=== PATIENT | male | born 1970 | race Caucasian/White ===

== ENCOUNTER 2023-05-17 11:14 | Day surgery (SDC) | payer BC ==
[~2023-05-17 11:14] MED LIST: Lactated Ringers 1,000 ML IV SCH; propofoL 50 ML ONE
[2023-05-17 13:30] VITALS: BP 128/79; PULSE 82
== END 2023-05-17 13:10 | disposition home or self-care (01) ==
LOC: MW.SDS 11:14
PROVIDERS: ATTEND Surgery
DX: K62.1 Rectal polyp (principal); K63.89 Other specified diseases of intestine; K63.5 Polyp of colon; K57.30 Diverticulosis of large intestine without perforation or abscess without bleeding; K21.9 Gastro-esophageal reflux disease without esophagitis; E78.00 Pure hypercholesterolemia, unspecified; F41.0 Panic disorder [episodic paroxysmal anxiety]; R79.89 Other specified abnormal findings of blood chemistry; F98.8 Other specified behavioral and emotional disorders with onset usually occurring in childhood and adolescence; E66.9 Obesity, unspecified; Z78.9 Other specified health status; Z83.719 Family history of colon polyps, unspecified; Z79.899 Other long term (current) drug therapy; Z87.891 Personal history of nicotine dependence
CPT/HCPCS: 45380; J2704; J7120; 00811